=== PATIENT | male | born 1945 | race Caucasian/White ===

== ENCOUNTER 2016-07-06 10:28 | Day surgery (SDC) | payer MEDICARE ==
[~2016-07-06] VITALS: Ht 175.3 cm; Wt 83.5 kg
--- NOTE | 2016-07-06 08:01 | PCM.HPANE ---
Patient Data Surgeon Admitting Provider: Attending Provider:Pedro Hoffman MD Primary Care Physician:Annie Bonilla MD Other Provider: Reason for Visit Colon Polyps, Gerd Ht/WT & BMI Body Mass Index Allergies Coded Allergies: No Known Allergies (Verified Allergy, Unknown, 05/17/15) Medications Reported Medications Alpha Lipoic Acid (Alpha-Lipoic Acid)50 Mg Enjlxlr243 Mg PO DAILY 07/06/16 [Benfotiamine] No Conflict Auezc515 Mg PO DAILY 07/06/16 Simvastatin 40 Mg Gqkcvb55 Mg PO HS 30 Days Ref 0 07/05/16 Omeprazole 20 Mg Capsule.dr20 Mg PO BID Ref 0 07/05/16 Glucosamine Sulfate 2Kcl (Glucosamine)1,000 Mg Tablet1,500 Mg PO DAILY 07/05/16 Fluoxetine 20 Mg Uoksyl42 Mg PO DAILY Ref 0 07/05/16 Ubidecarenone (Coenzyme Q-10)50 Mg Mhqznej651 Mg PO DAILY 07/05/16 Cholecalciferol (Vitamin D3) (Vitamin D3)1,000 Unit Tab.chew1,000 Unit PO DAILY 07/05/16 Testosterone (Androderm)1 Each Patch.td241 Each TD DAILY 07/05/16 Discontinued Reported Medications Simvastatin 10 Mg Saftyn70 Mg PO HS Ref 0 07/05/16 Orlistat (Pedro)60 Mg Mbvhlsm64 Mg PO DAILY 07/05/16 History Smoking Status: Never Smoker Stop/Bang Risk Assessment Category Category 1A: Patient has history of documented sleep apnea, and HAS NOT received any narcotic, sedative or anesthesia administration during this stay. Category 1B: Patient has history of documented sleep apnea, and HAS received any narcotic , sedative or anesthesia administration during this stay Category 2: Patient has SUSPECTED Obstructive Sleep Apnea, and HAS received any narcotic , sedative or anesthesia administration during this stay. Category 3: Patient has SUSPECTED Obstructive Sleep Apnea and HAS NOT received narcotic, sedative or anesthesia administration during this stay. Category 4: Outpatient in Procedural Areas with known sleep apnea or who screen positive for High Risk via the STOP/BANG questionnaire. Exam Exam General Appearance: Alert, Oriented X3, Cooperative, No Acute Distress HEENT/AIRWAY: MP 2 Lungs: Clear to Auscultation, Normal Air Movement Heart: Exam Unremarkable, Regular Rate/Rhythm, No Murmurs/Rubs/Gallops Plan Impression Patient chart reviewed, patient interviewed and anesthestic plan with risks, benefits, and alternatives discussed, and informed consent obtained. ASA Physical Status: ASA2 Mod Systemic Disease Anesthetic Plan: MAC Bene/Risks/Altern/Consents: Yes HP Complete Prior to Induction: Yes Mars Amador MD Jul 06, 2016 08:01
[~2016-07-06 10:28] MED LIST: CHOL10008 PO; FLUO20TA28 PO; GLUC100016 PO; Lactated Ringer's 1,000 ML IV ONE; OMEP20CA11 PO; ORLI60CA2 PO; SIMV10TA4 PO; SIMV40TA5 PO; TEST1PAT7 TD; UBID50CA29 PO
[2016-07-06] MEDS ORDERED: Propofol 10,000 mCg/mL 20 mL Inj ONE (10:29)
[2016-07-06] MEDS ORDERED: fentaNYL-PF 50 mCg/mL 2 mL Inj ONE (10:29)
[2016-07-06 10:40] VITALS: BP 145/86; PULSE 74; RESP 14; O2SAT 97
[2016-07-06] MEDS ORDERED: THIO50CA PO (10:46)
[2016-07-06] MEDS ORDERED: BENFOTIAMINE PO (10:46)
[2016-07-06] MEDS ORDERED: Lactated Ringer's 1,000 ML IV SCH (11:46)
--- NOTE | 2016-07-06 11:46 | PCM.ANEP1 ---
Post Anesthesia Phase 1 PACU Phase 1 Assessment Vital Signs Vital Signs Date Time Temp Pulse Resp B/P Pulse Ox O2 Delivery O2 Flow Rate FiO2 07/06/16 10:40 36.6 74 14 145/86 97 Room Air Anesthetic Administered: MAC Level of Alertness: Awake, talking SANCHEZ's with Equal Strength: Yes Pain: No Nausea or Vomiting: No Oxygen Delivery: Nasal Cannula Mars Amador MD Jul 06, 2016 11:46
--- NOTE | 2016-07-06 11:47 | PCM.ANEP2 ---
Post Anesthesia Evaluation ASA/CMS Post Anesthesia VS in Patient's Normal Range?: Yes Resp Stable; Airway Patent?: Yes CV Function & Hydration Stable: Yes Mental Status Recovered?: Yes Pain control Satisfactory?: Yes N/V Control Satisfactory?: Yes Mars Amador MD Jul 06, 2016 11:47
[2016-07-06 11:50] VITALS: BP 122/70; PULSE 64; RESP 14; O2SAT 93
[2016-07-06] MEDS ORDERED: MetoCLOpramide 5 mg/mL 2 mL Inj IVPUSH PRN (11:50)
[2016-07-06] MEDS ORDERED: Ondansetron 2 mg/mL 2 mL Inj IVPUSH PRN (11:50)
[2016-07-06 12:02] VITALS: BP 114/76; PULSE 72; RESP 16; O2SAT 95
--- NOTE | 2016-07-06 12:20 | ENDO ---
[address] [address] ENDOSCOPY PROCEDURE PATIENT: VALERIANO CHATMAN : 1945 MR#: [id number] ADMIT: 07/06/2016 JOB ID: [id number] DATE OF SERVICE: 07/06/2016 TYPE OF OPERATION: 1. Esophagogastroduodenoscopy with biopsy. 2. Colonoscopy with snare polypectomy and biopsy. PREOPERATIVE DIAGNOSES: 1. Gastroesophageal reflux disease. 2. Dysphagia. 3. History of colon polyps. POSTOPERATIVE DIAGNOSES: 1. Mild nonerosive gastritis. 2. A 1 cm ascending colon polyp, removed by hot snare polypectomy. 3. A 2 mm sigmoid colon polyp, removed by cold biopsy forceps. 4. Small internal hemorrhoids. ANESTHESIA: Monitored anesthesia care. COMPLICATIONS: None. BLOOD LOSS: Minimal. DESCRIPTION OF PROCEDURE: After risks and benefits explained to the patient, informed consent was obtained. After anesthesia administered, upper endoscope was then inserted into the mouth, intubated into the esophagus, stomach, second portion of duodenum, and mucosa carefully examined. After procedure was done, the scope was withdrawn and procedure terminated. Colonoscope was then inserted from the rectum to the cecum. Mucosa carefully examined. Prep of the patient was excellent. After procedure was done, the scope withdrawn and the procedure terminated. FINDINGS: Upon inspection of the esophagus, there were no masses or ulcers that were seen. No concentric rings were seen. Z-line located 40 cm from incisors. Upon entering the stomach, there were no masses or ulcers that were seen. There was mild nonerosive gastritis. Retroflexion was normal. Duodenal bulb, first portion normal. Biopsies taken from the antrum, body of stomach, and mid and distal esophagus. Upon inspection of the anus, no masses, hemorrhoids, ulcers, or fissures that were seen. Throughout the entire examination, there was a 1 cm ascending colon polyp, removed by hot snare polypectomy. There was a 2 mm sigmoid colon polyp, removed by cold biopsy forceps. Retroflexion showed small internal hemorrhoids. IMPRESSION: 1. Small internal hemorrhoids. 2. A 1 cm ascending colon polyp, removed by hot snare polypectomy. 3. A 2 mm sigmoid colon polyp removed by biopsy forceps. 4. Mild nonerosive gastritis. RECOMMENDATION: Await pathology results. If the ascending colon polyp is a tubular adenoma, then next colonoscopy will be in three years. Otherwise, his next colonoscopy will be in five years. Follow up in GI clinic as needed.
== END 2016-07-06 23:59 | disposition home or self-care (01) ==
LOC: END 10:28
PROVIDERS: ATTEND Internal Medicine Gastroenterology
DX: Z12.11 Encounter for screening for malignant neoplasm of colon (principal); Z86.010 Personal history of colon polyps; K63.5 Polyp of colon; K29.70 Gastritis, unspecified, without bleeding; K21.9 Gastro-esophageal reflux disease without esophagitis; K64.8 Other hemorrhoids
CPT/HCPCS: 43239; 45385; J2250; J7120